=== PATIENT | female | born 1940 | race Two or more races ===

== ENCOUNTER → 2017-08-08 | Outpatient (CLI) | payer OTHER, MEDICAID | LOC: CIMAGING 12:06 | PROVIDERS: ATTEND Family Medicine | DX: Z12.31 Encounter for screening mammogram for malignant neoplasm of breast (principal) | CPT/HCPCS: G0202 ==

== ENCOUNTER → 2018-01-22 | Outpatient (CLI) | payer OTHER, MEDICAID | LOC: CIMAGING 14:29 | PROVIDERS: ATTEND Family Medicine | DX: M24.811 Other specific joint derangements of right shoulder, not elsewhere classified (principal); M24.812 Other specific joint derangements of left shoulder, not elsewhere classified; M25.711 Osteophyte, right shoulder; M25.712 Osteophyte, left shoulder | CPT/HCPCS: 73030-PO ==

== ENCOUNTER → 2018-09-17 | Outpatient (CLI) | payer OTHER, MEDICAID | LOC: CIMAGING 14:58 | PROVIDERS: ATTEND Family Medicine | DX: Z12.31 Encounter for screening mammogram for malignant neoplasm of breast (principal) ==

== ENCOUNTER → 2018-12-10 | Outpatient (CLI) | payer OTHER, MEDICAID | LOC: CIMAGING 11:04 | PROVIDERS: ATTEND Family Medicine | DX: M79.89 Other specified soft tissue disorders (principal); M71.21 Synovial cyst of popliteal space [Baker], right knee | CPT/HCPCS: 93970-PO ==

== ENCOUNTER → 2019-01-22 | Outpatient (CLI) | payer OTHER, MEDICAID | LOC: CIMAGING 15:05 | PROVIDERS: ATTEND Family Medicine | DX: J42 Unspecified chronic bronchitis (principal); I51.7 Cardiomegaly | CPT/HCPCS: 71046-PO ==